=== PATIENT | female | born 1945 | race Caucasian/White ===

== ENCOUNTER 2016-09-16 04:33 | Inpatient (IN) | payer MEDICARE, OTHER, MEDICAID ==
[~2016-09-16] VITALS: Ht 165.1 cm; Wt 80.1 kg
--- NOTE | ~2016-09-16 | WND ---
ADMIT: 09/16/2016 RM/LOC: 403 [facility] MR#: [id number] [address] [address] MARI MAYORGA [address] [place] [address] [facility] SEX: F AGE: 71 : 1945 DATE OF VISIT: 09/17/2016 TIME IN: 1555 hours. TIME OUT: 1620 hours. REASON FOR VISIT: Evaluation and treatment of bilateral lower extremity ulcerations. This is a request for wound care from Dr. Saucedo. HISTORY OF PRESENT ILLNESS: This is the first time Wound Care has seen this 71-year-old female. She is admitted to [facility] on 09/16/2016, with shortness of breath. She has a history of chronic heart failure with preserved ejection fraction, hyponatremia, hypokalemia and anxiety. She was not sleeping well for several nights, she felt palpitations, was anxious and feeling short of breath. She has been following her weights at home and reported they were stable. She was seen in Dr. Saucedo's office a week ago. She was changed from Lasix to torsemide to help with diuresis. She took it 1 day, but felt did not help, so she stopped it. She also stopped her spironolactone. She presented to the emergency room where she was evaluated. In the ER, it was noted that her sodium was 131, potassium 3.0, creatinine 1.9 which is up. Therefore, she was admitted for further evaluation and cares. Wound Care was consulted today because of an open area on her anterior right lower extremity that has been bleeding. She also has multiple crusts noted on all her extremities. PAST MEDICAL HISTORY: Obtained from previous records. Atrial fibrillation, on chronic anticoagulation therapy with Coumadin. Anxiety, severe. Chronic pulmonary hypertension. Pleural effusion. Fibromyalgia. Chronic hyponatremia in the past. Major depression. Essential hypertension. Heart murmur, status post pacer. Hypokalemia, likely diuretic induced. PAST SURGICAL HISTORY: Right knee surgery, Achilles tendon rupture, rotator cuff, carpal tunnel, appendectomy, thoracentesis, pacemaker. ALLERGIES: To penicillin, cephalosporins, carbapenems. CURRENT MEDICATIONS: Per the MAR. See the MAR for further details. 1. Abilify. 2. Aldactone. 3. Coumadin. 4. Effexor. 5. Lopressor. 6. Micro-K. 7. Zestril. 8. Lasix. 9. Normal saline p.r.n. 10.Ativan. 11.Hurricaine. 12.Viscous lidocaine. 13.Maalox. ADMIT: 09/16/2016 RM/LOC: 403 [facility] MR#: [id number] [address] [place] [phone] MARI MAYORGA [address] [place] [address] W[facility] Care Clinic SEX: F AGE: 71 : 1945 14.Surfak. 15.Tylenol. 16.Flonase. 17.Tylenol suppository. 18.Nitrostat. FAMILY HISTORY: Father of kidney failure in his 50s. Mother had a stroke at 81. She has a brother and sister. Chart also indicates family history of cancer and stroke. SOCIAL HISTORY: She lives in [place]. She has her Associate's Degree. She is retired. She is single. She smoked less than a half a pack a day for year, but quit 43 years ago. She has 2 to 3 drinks whiskey every 3 to 4 days. REVIEW OF SYSTEMS: She is examined in her hospital room where she is awake, alert, and oriented x3. She denies any recent fever or chills. No nausea or vomiting. Has an occasional cough. At times, she says her chest hurts, but she thinks it is more related to her "heart rate." She states she has had pain in her legs that sometimes she describes it as shooting and it is in the posterior side of her right calf. She said to the anterior right leg, she has noticed an area that tends to bleed on and off for the last 2 to 3 weeks. She has also had some shortness of breath prior to admission. PHYSICAL EXAMINATION: VITAL SIGNS: Temperature 97.9, heart rate 71, respirations 15, blood pressure 115/55, O2 sats on room air is 95%. Body wide skin exam was done. She has varicosities noted, not only on her back, but also on her bilateral lower extremities. On her upper arm, she has numerous scattered small crusts and numerous bruises. None are open, none with any surrounding erythema or induration or drainage noted. To the right lower extremity, foot circumference is 22 cm, ankle is 25.5 cm and calf 20 cm, malleolus is 31 cm. Posterior tibialis and dorsalis pedis is 1+. She has brisk capillary refill. Her toes are cool to touch. She has multiple fine varicosities noted. On the anterior surface of her leg, she has a small opening that measures 0.7 cm x 0.4 cm with a depth of 0.2 cm with pink wound base. On the anterior area of her bates, is a full-thickness skin tear in the shape of the triangle that measures 1.1 cm x 0.3 cm with a depth of 0.2 cm. It is constantly oozing fresh blood. On the distal gaiter area, is a small crust that measures 0.7 cm x 0.7 cm with edges attached. On the medial malleolar area, is an area that measures 4 cm x 1.4 cm with multiple thin crusts noted. On posterior calf, is a small crust that is 1 x 0.3 cm in a C shape. This is dry and intact, appears to be a healed skin tear. On the left lower extremity, foot circumference is 22.5 cm, ankle is 20.5 cm and calf 20 cm, malleolus is 28 cm. Posterior tibialis and dorsalis pedis is 1+. Her toes with brisk capillary refill, slightly cool to touch. On the posterior calf, is a small crust that measures 0.3 cm x 0.2 cm. Anterior and more medially, is a crust that measures 0.4 cm x 0.3 cm; anterior laterally ADMIT: 09/16/2016 RM/LOC: 403 [facility] MR#: [id number] [address] [address] MARI MAYORGA [address] [place] [address] Wound Care Clinic SEX: F AGE: 71 : 1945 crust 0.4 cm x 0.6 cm; lateral medial crust 0.6 x 1.3 cm; and the medial malleolar area is 3 x 0.5 scattered small red crust. ASSESSMENT: 1. Scattered crusts intact on all extremities. 2. Right lower extremity anterior bates full-thickness categories skin tear with bleeding. TREATMENT PLAN: We will continue with Aloe Levan to all her extremities daily to help with moisturization. To the anterior bates area where the bleeding was occurring, pressure was applied, but did not stop the oozing. Therefore, Surgicel Hemostat Absorbable was obtained from the emergency room and placed over the bleeding skin tear. Pressure was held in place for 15 to 20 minutes. The bleeding appeared to slow. Vaseline gauze was placed over the crust on the right anterior bates area covered with an ABD and Kerlix wrap. Orders written to change the right lower extremity dressing daily. The Surgicel can be left in place until it comes off on its own. Also, notified the staff that if they need more of the Surgicel, to please contact the ER. Also, if this continues to ooze, may need to be cauterized. Thank you for this referral, and Wound will follow while she is inpatient. Jess Zapata, WAN/ hemanth JOB #: [id number] CC: Luigi Saucedo, Attending Physician Luigi Saucedo, Family Physician
[~2016-09-16 04:33] MED LIST: ALDACTONE DPS25 MG PO; ATIVAN-DPS1 MG PO; CLARITIN DPS10 MG PO; COUMADIN7.5 MG PO; COZAAR DPS25 MG PO; KLOR-CON M2020 ME1 PO; LASIX DPS80 MG PO; LOPRESSOR DPS50 MG PO; PAXIL10 MG PO
--- NOTE | 2016-09-18 11:56 | CO ---
ADMIT: 09/16/2016 RM/LOC: 403 [facility] MR#: [id number] [address] [address] TI[place] MARI Ivone [address] [place] [address] Consultation SEX: F AGE: 71 : 1945 DATE OF CONSULTATION: 09/17/2016 ATTENDING PHYSICIAN: Luigi Saucedo CONSULTING PHYSICIAN: Shawn Quiroz MD REASON FOR CONSULTATION: Persistent hypokalemia. HISTORY OF PRESENT ILLNESS: The patient is a 71-year-old female, who has had several hospital admissions over the last one month, 3 to be precise. She has a history of heart failure along with atrial fibrillation. She has required diuretics for her volume management. She notes that she has had cardiac issues for about the last 40 years. She is unclear as to the duration of her hypokalemia, but notes that it has been pronounced over the last 4 years or so. She denies any family history of similar electrolyte abnormalities. This time around, she was admitted with worsening shortness of breath. She has been keeping track of her weight at home and notes that her weight had gone up from 174 to 180 pounds prior to admission. She had been having some orthopnea as well. She had noticed worsening lower extremity edema too. Preceding this hospitalization, she had an attempted change in her diuretics from furosemide to torsemide that she reports did not work well for her. She was also having some palpitations prior to admission and then she had stopped her Aldactone. She has been requiring potassium supplements at home almost up to 90 mEq a day in divided doses. She has been attempting potassium rich foods such as bananas and tomatoes. At the time of this encounter, she feels better. Her breathing is better. She denies any urinary complaints. She has no ongoing GI losses to explain her hypokalemia. She has had a wound on her right bates for which Wound Care has been asked to evaluate her. She claims compliance with dietary sodium restriction otherwise. REVIEW OF SYSTEMS: A complete review of systems is negative in detail except as mentioned in history of present illness. PAST MEDICAL HISTORY: 1. Atrial fibrillation. 2. Right-sided pleural effusion. 3. Anxiety. 4. AV node ablation. 5. Hypokalemia. 6. Cataracts. 7. Osteoarthritis. 8. Pulmonary hypertension. ALLERGIES: PENICILLINS, CEPHALOSPORINS, AND CARBAPENEMS. MEDICATIONS: Reviewed in the chart. ADMIT: 09/16/2016 RM/LOC: 403 [facility] MR#: [id number] [address] [address] MARI MAYORGA [address] [place] [address] Consultation SEX: F AGE: 71 : 1945 SOCIAL HISTORY: Lives alone. Lifelong nonsmoker. Drinks alcohol occasionally. No recreational drug use. FAMILY HISTORY: No family history of hypokalemia or similar electrolyte abnormalities. Father of renal failure and uremia in 1963. MEDICATIONS: Reviewed in the chart. PHYSICAL EXAMINATION: VITAL SIGNS: Temperature 97.2 Fahrenheit, pulse 71, blood pressure 98/53, and saturating 95% on room air. GENERAL: She is comfortable. HEENT: Head is nontraumatic and normocephalic. No conjunctival pallor. Moist mucosa. CHEST: Clear to auscultation CVS: Irregular S1, S2 heard. No rubs, murmurs, or gallops. ABDOMEN: Soft and nontender. EXTREMITIES: She does have lower extremity edema, more pronounced on the right side. SKIN: She has a wound on her right bates. It is bandaged currently. NEUROLOGIC: Alert, awake, and x3, is able to move all her extremities. MUSCULOSKELETAL: Major joints within normal limits. Range of motion within normal limits. LABORATORY DATA: Reviewed. Her BMP this morning with a sodium of 133, potassium 3.0, CO2 is 34, creatinine 1.2, calcium 8.8, magnesium 2.4. Her potassium was normal in July 2016. This was presumably on potassium supplements. Her urinalysis showed some hyaline casts. Her N terminal proBNP was 1975. ASSESSMENT/PLAN: Hypokalemia - likely diuretic induced. The urine potassium has been ordered but this will be confounded by ongoing diuretic use as well as exogenous potassium supplements. She does not have any gastrointestinal ADMIT: 09/16/2016 RM/LOC: 403 [facility] MR#: [id number] [address] [address] MARI MAYORGA [address] [place] [address] Consultation SEX: F AGE: 71 : 1945 losses to explain this hypokalemia. Her serum magnesium level is okay as well. Based on her serum bicarbonate, it is unlikely that she is having a metabolic acidosis too. Considering the severity of her hypokalemia, I would replete this with intravenous potassium chloride first. I will also try to use potassium-sparing antihypertensives, that is lisinopril and Aldactone to see if we can conserve any potassium to see if we can decrease any urinary potassium losses. Of course, we will have to be cautious with her blood pressure being on the lower side. Thank you for this interesting consultation and allowing me the opportunity to participate in this patient's care. Please do not hesitate to contact me with any questions. Shawn Quiroz MD/ hemanth JOB #: [id number] CC: Luigi Saucedo, Attending Physician Luigi Saucedo, Family Physician
[2016-09-18] MEDS ORDERED: LASIX DPS80 MG PO (17:38)
[2016-09-18] MEDS ORDERED: MICRO-K DPS10 MEQ PO (17:38)
[2016-09-18] MEDS ORDERED: COUMADIN7.5 MG PO ×2 (17:38→17:39)
[2016-09-18] MEDS ORDERED: ALDACTONE50 MG PO (17:38)
[2016-09-18] MEDS ORDERED: ABILIFY5 MG PO (17:39)
[2016-09-18] MEDS ORDERED: ATIVAN-DPS1 MG PO (17:39)
[2016-09-18] MEDS ORDERED: EFFEXOR XR37.5 M1 PO (17:40)
[2016-09-18] MEDS ORDERED: FLONASE 0.05% D16 GM NS (17:40)
[2016-09-18] MEDS ORDERED: ZESTRIL DPS2.5 MG PO (17:40)
[2016-09-18] MEDS ORDERED: LOPRESSOR DPS50 MG PO (17:40)
[2016-09-18] MEDS ORDERED: TYLENOL EXTRA500 M1 PO (17:40)
--- NOTE | 2016-09-18 22:11 | HP ---
ADMIT: 09/16/2016 RM/LOC: 403 [facility] MR#: [id number] [address] [address] MARI MAYORGA [address] [place] [address] History and Physical SEX: F AGE: 71 : 1945 DATE OF SERVICE: CHIEF COMPLAINT: Shortness of breath. HISTORY OF PRESENT ILLNESS: This is a 71-year-old female. She has past history of chronic heart failure with preserved ejection fraction, hyponatremia, hypokalemia, and anxiety. She presented with not sleeping for four nights. She has some palpitations at night, feeling anxious, and feeling short of breath. She says, she is more short of breath when she lies down. She falls asleep and then wake up with a feeling of panic with her heart racing, so she cannot "go on like this." She has been following her weights at home and these have been pretty stable for her she reports, I saw her about a week ago in my office. I changed her from Lasix to torsemide to hopefully help with her diuresis. She reports that she just took it one day and did not think it helped, so she stopped it. She also stopped her spironolactone because she thought it was making her have these palpitation episodes, so she came to the emergency room. She is very anxious because she reports she lost her Medicaid. She says she did get some forms in time that she was supposed to. In the emergency room, nothing acute. Sodium was 131, potassium 3.0, creatinine 1.9 which is up. PAST MEDICAL HISTORY: All reviewed per last H and P and unchanged. SOCIAL HISTORY: All reviewed per last H and P and unchanged. FAMILY HISTORY: All reviewed per last H and P and unchanged. MEDICATION: Per the admission medication list. REVIEW OF SYSTEMS: Other complete review of systems obtained and negative except as above. PHYSICAL EXAMINATION: VITAL SIGNS: Blood pressure 120/65, heart rate 70, respiratory rate 18, temperature 97.8. GENERAL: This is a moderately anxious 71-year-old female. She is in some distress because of her anxiety. HEENT: Pupils are equal, round, and reactive to light and accommodation. Extraocular muscles are intact. Her throat is clear. NECK: Supple. HEART: regular rate and rhythm. She has a pacer in the upper chest. She does have a systolic and diastolic murmur. LUNGS: Diminished in the right lower lobe and severely diminished throughout. ABDOMEN: Protuberant, but soft without any overt tenderness. EXTREMITIES: Lower extremities, she has some venous stasis and recent dermatitis irritation on the right lower extremity. She has 2 to 3+ pitting edema. She has some wounds on her legs. She has poor balance. She can move all extremities equally bilaterally. LABORATORY AND X-RAY DATA: As above and INR is 1.84, proBNP is 1975, troponin ADMIT: 09/16/2016 RM/LOC: 403 [facility] MR#: [id number] [address] [place] [phone] MARI MAYORGA [address] [place] [address] History and Physical SEX: F AGE: 71 : 1945 was mildly elevated at 0.048, CK is 106, potassium 3.0, sodium 131, creatinine 1.9, magnesium of 1.9. Hemoglobin 11.8. EKG is paced. ASSESSMENT: 1. Shortness of breath. 2. Anxiety. 3. Chronic heart failure with preserved ejection fraction. 4. Atrial fibrillation. 5. Chronic anticoagulation. 6. Chronic obstructive pulmonary disease. 7. History of an arrhythmia. PLAN: She will be admitted her to the hospital. Rule out for cardiac ischemia. Worked up for hyponatremia and give her extra potassium. Continue diuresis to try to see if we can help her symptoms. I think some of her symptoms are anxiety based. I will have social work help with these issues. I will have Cardiology consult as well. Luigi Saucedo MD/ hemanth JOB #: [id number] CC: Luigi Saucedo, Attending Physician Luigi Saucedo, Family Physician
--- NOTE | 2016-09-19 21:21 | ER ---
ADMIT: 09/16/2016 RM/LOC: 403 [facility] MR#: [id number] [address] [address] [place] MARI Ivone [address] [place] [address] Emergency Room Report SEX: F AGE: 71 : 1945 DATE: 09/16/2016 HISTORY OF PRESENT ILLNESS: The patient is a 71-year-old female with chronic diastolic heart failure, chronic hyponatremia, hypokalemia, moderate tricuspid regurgitation, pulmonary hypertension, obstructive sleep apnea, intolerant of CPAP, states for the past four nights she has had orthopnea PND, called the squad tonight because of the increasing dyspnea. Denies any chest pain, fevers, chills, or cough. PAST MEDICAL HISTORY: ALLERGIES: CEPHALOSPORINS, CARBAPENEMS, PENICILLIN. MEDICATIONS: Please see nurse's MAR. ILLNESSES: Chronic atrial fib, status post dual-chamber pacemaker and ICD; moderate tricuspid regurgitation; mild mitral regurgitation; hypertension; hyponatremia; hypokalemia; chronically anticoagulated anemia of chronic disease; anxiety; depression; DJD; and pulmonary hypertension. OPERATIONS: Appendectomy, normal cardiac cath 2006, ICD dual-chamber pacemaker, AV mily ablation, lung decortication, cataract extraction with retinal detachment. SOCIAL HISTORY: Never smoker. Single. Lives alone. No illicit drugs or alcohol. FAMILY HISTORY: Negative per chart review. REVIEW OF SYSTEMS: A 12-point review of systems negative for all other systems, illnesses, or operations except as outlined above. PHYSICAL EXAMINATION: VITAL SIGNS: Temperature 97.8, pulse 70, respirations 18, BP 120/65, SaO2 of 98% on room air. GENERAL: Nontoxic, non-diaphoretic without jaundice or icterus. HEENT: Normocephalic. No evidence of epistaxis, rhinorrhea, or otorrhea. NECK: Supple without lymphadenopathy or thyromegaly. CHEST: Breath sounds equal. Slightly diminished right lung base. HEART: Regular rate and rhythm with grade 3/6 diastolic murmur noted at left sternal border. 3+ pedal ankle edema. ABDOMEN: Obese, nontender, nondistended without mass or megaly. Bowel sounds hypoactive. EXTREMITIES: No evidence of Homans sign, or synovitis. Venous stasis dermatitis/cellulitis noted. NEURO: EOMI. PERRLA. No evidence of drift, dysarthria, or ataxia. GAIT: Not assessed. LABORATORY AND DIAGNOSTIC DATA: Chest x-ray shows cardiomegaly without CHF. EKG shows atrial fib, ventricular paced; nonspecific interventricular ADMIT: 09/16/2016 RM/LOC: 403 [facility] MR#: [id number] [address] [place] [phone] [place] [address] Emergency Room Report SEX: F AGE: 71 : 1945 conduction delay, unchanged from previous. Hemoglobin 11.8, sodium 131, potassium 3.0, creatinine 1.9, lactic 1.9. BNP 1975. INR 1.84. CK 106, MB 1.2. Troponin 0.048. The patient was given Lasix 40 mg IV push. Discussed case with Dr. Saucedo, who agreed to admit and requests floor to call for orders. DIAGNOSES: 1. Acute kidney injury associated with chronic kidney disease. 2. Hyponatremia and hypokalemia. 3. Congestive heart failure. 4. Pulmonary hypertension. RECOMMENDATION: Admit inpatient telemetry for Dr. Saucedo. ADMISSION/DISCHARGE CONDITION: Serious. CODE STATUS: The patient is a full code. Vick Gary MD/ hemanth JOB #: [id number] CC: Luigi Saucedo MD, Attending Physician Luigi Saucedo MD, Family Physician Luigi Saucedo MD
--- NOTE | 2016-09-25 07:12 | DS ---
ADMIT: 09/16/2016 RM/LOC: 403 [facility] MR#: [id number] 2620 [facility] [address] [place] [address] [place] MARI Wiseman [address] [place] [address] General Discharge Summary SEX: F AGE: 71 : 1945 ADMISSION DATE: 09/16/2016 DISCHARGE DATE: 09/18/2016 FINAL DIAGNOSES: 1. Shortness of breath. 2. Anxiety. 3. Acute on chronic heart failure with preserved ejection fraction. 4. Atrial fibrillation. 5. History of ventricular tachycardia. 6. Hyponatremia, anticoagulation. 7. Elevated troponin. 8. Acute kidney injury. See admission H and P for reason for admission. HISTORY OF PRESENT ILLNESS: Briefly, a 71-year-old female with chronic heart failure, presented with increased shortness of breath and some social issues. She also had been on some oral metolazone and potassium and sodium were pretty low. HOSPITAL COURSE: The patient was admitted. Continued on IV Lasix. We got a kidney ultrasound and some urine studies and follow closely. I had Nephrology consult for persistent hypokalemia. He put her on 2.5 mg of lisinopril. She was supposed to get set up for a CARL and ultimately decided that I need to do that. She has wound care to her wounds on her legs. By the , she was feeling pretty well, was wanting to go home. INR was 2.69. Sodium 138, potassium 3.9, BUN 31, creatinine 1.2, so she was set up to go home. Therefore, this was done. DISCHARGE MEDICATIONS: 1. Abilify 5 mg at bedtime. 2. Aldactone 12.5 mg q.p.m. ADMIT: 09/16/2016 RM/LOC: 403 [facility] MR#: [id number] [address] [address] MARI MAYORGA Ivone [address] [place] [id number] General Discharge Summary SEX: F AGE: 71 : 1945 3. Coumadin 7.5 mg on Thursday, Thursday, Thursday, , Thursday, and 11.25 mg Thursday and Thursday. 4. Effexor 37.5 mg daily. 5. Lopressor 50 mg b.i.d. 6. Potassium 30 mEq t.i.d. 7. Lisinopril 2.5 mg daily. 8. Ativan 1 mg q.8 hours p.r.n. 9. Lasix 160 mg p.o. b.i.d. 10.Flonase each nostril b.i.d. p.r.n. PLAN: Resume home health care. Continue with daily weights. Low-salt diet. BMP and a pro-time next Thursday, and follow up with me in 1 to 2 weeks. Luigi Saucedo MD/ hemanth JOB #: [id number] CC: Luigi Saucedo MD, Attending Physician Luigi Saucedo MD, Family Physician
--- NOTE | 2016-10-07 13:54 | CO ---
ADMIT: 09/16/2016 RM/LOC: 403 [facility] MR#: [id number] [address] [address] MARI MAYORGA [address] [place] [id number] Consultation SEX: F AGE: 71 : 1945 DATE OF CONSULTATION: 09/16/2016 ATTENDING PHYSICIAN: Luigi Saucedo CONSULTING PHYSICIAN: Ezekiel Brock MD REASON FOR CONSULT: Shortness of breath. HISTORY OF PRESENT ILLNESS: Mari is a 71-year-old female, with a past history of chronic heart failure with preserved ejection fraction, hyponatremia, hypokalemia, and anxiety. She presented to the ER with main symptoms of shortness of breath and heart palpitations. Onset of symptoms is 4 days ago. She reports shortness of breath and heart palpitations as soon as she falls asleep. She has to wake up and grasp for air. She denies any chest pain, dizziness, syncope. PAST MEDICAL HISTORY: History of permanent atrial fibrillation, normal coronary arteries by catheterization in 2005, right pleural effusion status post decortication at the [facility] in April, AV node ablation in 2009 with pacemaker placement, anemia, anxiety, depression, pulmonary hypertension. ALLERGIES: PENICILLIN, CEPHALOSPORIN, CARBAPENEMS. MEDICATIONS: 1. Potassium chloride 30 mEq three times daily. 2. Lasix 160 mg twice daily. 3. Spironolactone 25 mg every day. 4. Warfarin 7.5 mg. 5. Loratadine 10 mg every morning. 6. Aripiprazole 5 mg at bedtime. 7. Ativan 1 mg every 8 hours p.r.n. 8. Flonase 50 mcg daily p.r.n. 9. Tylenol 325 mg two tabs every 4 hours as needed. 10.Paroxetine 10 mg every morning. 11.Metoprolol tartrate 50 mg twice daily. SOCIAL HISTORY: The patient denies smoking and drug abuse. She drinks 2 alcoholic drinks occasionally. She eats a regular diet. FAMILY HISTORY: She did have a history of stroke in her mother. Positive family history for heart disease. REVIEW OF SYSTEMS: GENERAL: Denies fatigue, fever, chills, sweats, rash, or weight loss. EYES: Denies double vision, blurred vision, cataracts, or glaucoma. ENT: Denies hearing loss or problems with nose, mouth or throat. PULMONARY: Denies cough, sputum production, asthma, emphysema or bronchitis. Denies snoring loudly, wakefulness at night, or fatigue upon awakening. GASTROINTESTINAL: Denies heartburn or difficulty swallowing. No change in ADMIT: 09/16/2016 RM/LOC: 403 [facility] MR#: [id number] [address] [address] MARI MAYORGA [address] [place] [address] Consultation SEX: F AGE: 71 : 1945 bowel habits. Denies dark or bloody stools. No history of ulcers, hiatal hernia, or gallbladder or liver disease. GENITOURINARY: Denies dysuria, hematuria, nocturia, urinary tract infection, or kidney stones. Denies history of renal insufficiency or failure. MUSCULOSKELETAL: Denies history of arthritis or gout. Denies muscle or joint pains. ENDOCRINE: Denies history of thyroid dysfunction or diabetes. HEMATOLOGIC: Denies history of anemia, easy bruising, or cancer. NEUROLOGIC: Denies chronic headaches, dizziness, syncope, stroke, seizures or numbness or tingling. PSYCHIATRIC: Denies history of mental illness or feelings of depression. PHYSICAL EXAMINATION: VITAL SIGNS: Blood pressure 114/48, pulse 72, respirations 16, temperature 98.5, oxygenation 97% on room air. SKIN: [place], warm and dry. EYES: Sclerae clear. No xanthelasmas. ENT: Oral mucosa is pink and moist. No jugular venous distention or carotid bruits. CHEST: Respirations are even and unlabored. Lungs are clear to auscultation. HEART: 3/6 holosystolic murmur. ABDOMEN: Soft and nontender. MUSCULOSKELETAL: Gait is normal. EXTREMITIES: Positive for varicosities. Peripheral pulses palpable. No clubbing, cyanosis or edema. PSYCHIATRIC: Alert and oriented. Mood and affect are appropriate. LABORATORY AND X-RAY DATA: Sodium 131, potassium 3.0, chloride 85, carbon dioxide 34, BUN 144, creatinine 1.9, glucose 102. CK 106, MB 1.2, troponin 0.048, proBNP 1975, CRP 0.96. Last echo done on 09/01/2016, showed EF 55-60%. Chest x-ray on 09/16/2016, showed small right pleural effusion with right base atelectasis or consolidation. Ultrasound of kidneys on 09/16/2016, showed normal ultrasound of kidney and retroperitoneum. ADMIT: 09/16/2016 RM/LOC: 403 [facility] MR#: [id number] [address] [address] MARI MAYORGA [address] [place] [address] Consultation SEX: F AGE: 71 : 1945 ASSESSMENT AND PLAN: Per Dr. Brock: 1. Palpitations. Device was checked and showed no arrhythmias. Her symptoms are possibly due to her anxiety. 2. Heart failure. Preserved ejection fraction. We will continue IV Lasix. Mild fluid build-up. 3. Atrial fibrillation. Permanent status post AV node ablation. 4. Acute kidney injury. 5. Murmur. An echo was done 2 weeks ago and it did not show significant valvular disease. May consider CARL to evaluate mitral valve closer. 6. Status post pacer. Thank you for the consult. ANTHONY Mcdonald Student / Ezekiel Brock MD / hemanth JOB #: [id number] CC: Luigi Saucedo, Attending Physician Luigi Saucedo, Family Physician
[2016-10-30] MEDS ORDERED: KEFLEX-DPS500 MG PO (09:57)
[2017-03-17] MEDS ORDERED: CLARITIN DPS10 MG PO (09:01)
[2017-03-17] MEDS ORDERED: ORGAN-I NR200 MG PO (09:02)
[2017-03-17] MEDS ORDERED: ZAROXOLYN5 MG PO (09:03)
[2017-03-17] MEDS ORDERED: MAG-OX400 MG PO (09:05)
== END 2016-09-18 13:45 | disposition home health service (06) | DRG 291 ==
LOC: ER 04:33 → 4PCU 06:25
PROVIDERS: ADMIT Internal Medicine
DX: I13.0 Hypertensive heart and chronic kidney disease with heart failure and stage 1 through stage 4 chronic kidney disease, or unspecified chronic kidney disease (principal); I50.33 Acute on chronic diastolic (congestive) heart failure; N17.9 Acute kidney failure, unspecified; I27.2 Other secondary pulmonary hypertension; E87.1 Hypo-osmolality and hyponatremia; I48.2 Chronic atrial fibrillation; R00.2 Palpitations; E87.6 Hypokalemia; G47.33 Obstructive sleep apnea (adult) (pediatric); I08.1 Rheumatic disorders of both mitral and tricuspid valves; S81.811A Laceration without foreign body, right lower leg, initial encounter; X58.XXXA Exposure to other specified factors, initial encounter; D63.8 Anemia in other chronic diseases classified elsewhere; F41.9 Anxiety disorder, unspecified; F32.9 Major depressive disorder, single episode, unspecified; M19.90 Unspecified osteoarthritis, unspecified site; I51.7 Cardiomegaly; N18.9 Chronic kidney disease, unspecified; I87.8 Other specified disorders of veins; R01.1 Cardiac murmur, unspecified; Z95.810 Presence of automatic (implantable) cardiac defibrillator; Z79.01 Long term (current) use of anticoagulants

== ENCOUNTER 2016-10-03 14:37 | Emergency (ER) | payer MEDICARE, OTHER, MEDICAID ==
[~2016-10-03 14:37] MED LIST changes: +ABILIFY5 MG PO; +ALDACTONE50 MG PO; +EFFEXOR XR37.5 M1 PO; +FLONASE 0.05% D16 GM NS; +MICRO-K DPS10 MEQ PO; +TYLENOL EXTRA500 M1 PO; +ZESTRIL DPS2.5 MG PO
--- NOTE | 2016-10-05 11:45 | ER ---
ADMIT: 10/03/2016 RM/LOC: ER [facility] MR#: [id number] [address] [address] MARI MAYORGA [address] [place] [address] Emergency Room Report SEX: F AGE: 71 : 1945 DATE: ADDENDUM: This is a 71-year-old white female coming in with varicosity on her lower leg that have bled, we had stopped this. She does have significant varicose veins, chronic swelling, skin is a little bit dry she said. So essentially we had a cream that we applied to it and then we Marclelus wrapped her legs since that is a little easier for her. We are going to discharge her home. She does have Home Health coming in and she should follow up with her doctor. She is consistently low like 100/60 as far as her blood pressure and she is not having any problems tolerating that, that is her normal blood pressure. She should leave those Marcellus wraps on until her Home Health person sees in next couple of days. CONDITION ON DISCHARGE: Fair. Madhav Tellez MD/ hemanth JOB #: [id number] CC: Madhav Tellez MD, Attending Physician
[2016-10-30] MEDS ORDERED: KEFLEX-DPS500 MG PO (09:57)
[2017-03-17] MEDS ORDERED: CLARITIN DPS10 MG PO (09:01)
[2017-03-17] MEDS ORDERED: ORGAN-I NR200 MG PO (09:02)
[2017-03-17] MEDS ORDERED: ZAROXOLYN5 MG PO (09:03)
[2017-03-17] MEDS ORDERED: MAG-OX400 MG PO (09:05)
== END 2016-10-03 16:05 | disposition home or self-care (01) ==
LOC: ER 14:37
DX: I83.893 Varicose veins of bilateral lower extremities with other complications (principal); Z88.0 Allergy status to penicillin; Z79.899 Other long term (current) drug therapy

== ENCOUNTER 2016-10-24 12:22 | Inpatient (IN) | payer MEDICARE, OTHER, MEDICAID ==
[~2016-10-24] VITALS: Ht 165.1 cm; Wt 84.6 kg
[~2016-10-24 12:22] MED LIST changes: -KEFLEX-DPS500 MG PO; -MAG-OX400 MG PO; -ORGAN-I NR200 MG PO; -ZAROXOLYN5 MG PO
[2016-10-30] MEDS ORDERED: KEFLEX-DPS500 MG PO (09:57)
--- NOTE | 2016-10-31 16:27 | HP ---
ADMIT: 10/24/2016 RM/LOC: 415 [facility] MR#: [id number] [address] [address] MARI MAYORGA [address] [place] [address] History and Physical SEX: F AGE: 71 : 1945 DATE OF SERVICE: CHIEF COMPLAINT: Right lower extremity pain and swelling. HISTORY OF PRESENT ILLNESS: This is a 71-year-old female. She has a past medical history of chronic diastolic heart failure, atrial fibrillation, COPD, and recurrent lower extremity edema with cellulitis recently. She has been at home with some home health care but her lower extremity started to swell more. She had labs done a couple of days ago, showing an elevated creatinine up to 2.6, which is above her baseline of about 1.6. I brought her into the office today for evaluation. She reveals she has had some right lower extremity swelling and pain. This has been worse over the previous couple of days. It should be noted that her INR 3 days ago was 2.19. Her leg is grossly swollen with some petechial-like rashes. She has some gross redness over the foot and bates. It is exquisitely tender to palpation. It is warm, good capillary refill bilaterally. Her pain is so severe. She is having trouble getting around. She does feel a little short of breath but she blames this on me because I held her Lasix couple of days ago due to her elevated creatinine. She denies any fevers or chills but reports she has lost her gumption and/or motivation. PAST MEDICAL HISTORY: Includes chronic diastolic congestive heart failure, right pleural effusion, status post decortication, atrial fibrillation, chronic hyponatremia, anticoagulation, anxiety, history of alcohol abuse, COPD, fibromyalgia, major depression. PAST SURGICAL HISTORY: Also include right knee surgery, Achilles tendon rupture, rotator cuff surgery, carpal tunnel, and appendectomy. MEDICATIONS: Per the admission medication list. SOCIAL HISTORY: She does drink alcohol at times. She lives by herself with some help from assisted living right now. FAMILY HISTORY: Her father of kidney failure in his 50s. Mother had a stroke at 81. She is single former smoker, has a sister and a brother. REVIEW OF SYSTEMS: Other complete review of systems obtained and negative except as above. PHYSICAL EXAMINATION: VITAL SIGNS: Temperature 97.8, pulse 70, respirations 18, blood pressure 98/61, ox saturation 94% on room air. GENERAL: This is a 71-year-old, white female. She is no apparent distress. She is alert and oriented. She is little anxious, appears fatigued. HEENT: Head is normocephalic and atraumatic. HEENT: Pupils equal, round, and reactive to light and accommodation. Her extraocular muscles are intact. Trachea is midline. Throat is clear. NECK: Again, supple. HEART: Regular rate and rhythm. She has 3/6 systolic murmur, best on the ADMIT: 10/24/2016 RM/LOC: 415 [facility] MR#: [id number] [address] [place] [phone] MARI MAYORGA [address] [address] History and Physical SEX: F AGE: 71 : 1945 left sternal border. LUNGS: Diminished, but clear bilaterally. She has some diminished sounds in the bases bilaterally. ABDOMEN: Diffusely protuberant and mildly tympanic. EXTREMITIES: Right lower extremity is grossly edematous with increased redness throughout, worse in her foot and lessens as it comes up to her thigh. She has some petechial-like rash on her right inner thigh, just close to her knee. She has some draining ulcerative area on the right. Her left lower extremity have 1+ edema and appears pretty normal. She has gross weakness. She can move all extremities. She has 4/5 strength bilaterally in all extremities. LABORATORY AND X-RAY DATA: She has had a venous Doppler done today, which was negative for DVT; however, did see right groin lymphadenopathy. Cultures done and pending. CRP is 10.5. Creatinine of 2.2. INR today is 2.76. Lactic acid is 1.0. CBC; white count 9.5, hemoglobin 10.2, and platelets of 189. Sedimentation rate is 49. Procalcitonin 0.87. Abdominal pelvis CT scan shows ascites, edema of the tissues, and superficial lymph node in the right groin of 2.5 cm and then scattered nonspecific lymph nodes as well. ASSESSMENT AND PLAN: 1. Right lower extremity swelling and pain. 2. Right lower extremity cellulitis. 3. Right groin lymphadenopathy. 4. Ascites. 5. Chronic diastolic congestive heart failure. 6. Acute kidney injury. 7. Chronic anticoagulation and atrial fibrillation. 8. Anxiety/depression. PLAN: She has been admitted to the hospital, give her IV antibiotics. We will follow her renal function closely. Consult Surgery for excisional biopsy of the right groin lesion at this time. Right groin lymph node with lymphoma studies. We will hold her Coumadin in the meantime until that surgery can be done. Luigi Saucedo MD/ hemanth JOB #: [id number] CC: Luigi Saucedo, Attending Physician Luigi Saucedo, Family Physician
--- NOTE | 2016-11-04 12:58 | DS ---
ADMIT: 10/24/2016 RM/LOC: 625 [facility] MR#: [id number] [address] [address] TIERRA MARI J [address] [place] [address] General Discharge Summary SEX: F AGE: 71 : 1945 ADMISSION DATE: 10/24/2016 DISCHARGE DATE: 10/29/2016 REASON FOR ADMISSION: See dictated H and P, but briefly, this is a 71-year- old female presented with right lower extremity swelling and severe pain. Noted to have cellulitis. HOSPITAL COURSE: The patient was admitted to the hospital, placed on IV antibiotics, rule out for DVT prior with venous Doppler. Doppler ultimately showed some lymph node in her right groin and potentially need for biopsy taken, this may be malignant. She did improve with IV antibiotics. Her leg swelling was much less, pain was much less. She had some hypokalemia, which was replaced orally. On the , her INR was 1.33, creatinine 1.3 and potassium was 4.7. Plan to discharge her to home and follow up with me in 1 to 2 weeks. DISCHARGE MEDICATIONS: Include: 1. Abilify 5 mg at bedtime. 2. Claritin 10 mg daily. 3. Coumadin 7.5 mg Thursday, Thursday, Thursday, Thursday, , Thursday, and half a pill on Saturdays. 4. Effexor 37.5 mg daily. 5. Lasix 60 mg daily. 6. Lopressor 50 mg b.i.d. 7. Potassium 30 mEq t.i.d. 8. Spironolactone 50 mg daily. 9. Ativan 1 mg q.8 hours p.r.n. 10.Keflex 1000 mg b.i.d. for seven more days. 11.Low-salt diet. 12.2 L of fluid or less. This coming Thursday, BMP and PT/INR. Follow up with me in 1 week's time. Luigi Saucedo MD/ hemanth JOB #: [id number] CC: Luigi Saucedo MD, Attending Physician Luigi Saucedo MD, Family Physician
--- NOTE | 2016-12-02 13:25 | CO ---
ADMIT: 10/24/2016 RM/LOC: 415 [facility] MR#: [id number] [address] [address] TIERRA MARI Ivone [address] [place] [address] Consultation SEX: F AGE: 71 : 1945 DATE OF CONSULTATION: 10/25/2016 ATTENDING PHYSICIAN: Luigi Saucedo CONSULTING PHYSICIAN: Silver Rivera MD REASON FOR CONSULTATION: Request for biopsy of right inguinal lymph node. HISTORY OF PRESENT ILLNESS: This patient is a 71-year-old female, who was admitted basically for cellulitis and edema of right lower extremity, right leg. She has a significant past medical history of chronic diastolic heart failure, atrial fibrillation, on chronic anticoagulation, with recurrent lower extremity edema and cellulitis. This is what she was admitted for. She is currently on IV antibiotics of vancomycin and Rocephin. The swelling of the leg and pain seems to be getting better. Then, the workup, she had a duplex ultrasound that showed no evidence of blood clots, they saw some adenopathy. CT scan was done and it showed some prominent lymph nodes in the right groin, I do not see a lot of significant lymph nodes in left groin. PAST MEDICAL HISTORY: Significant for the above. History of a decortication with a significant right pleural effusion here while back, anxiety history in the past, alcohol abuse, COPD, fibromyalgia, and depression. She has had the decortication of the right lung it sounds like then down in [place], right knee surgery. She has had an Achilles tendon rupture, rotator cuff, carpal tunnel, appendectomy. CURRENT MEDICATIONS: Please see the list. She is routinely on Coumadin, that is on hold. SOCIAL HISTORY: She lives currently by herself. Denies significant tobacco at this time or alcohol although she does drink at times it sounds like. FAMILY HISTORY: Noncontributory. REVIEW OF SYSTEMS: Currently, her review of systems is as above in the HPI. Otherwise, negative. PHYSICAL EXAMINATION: GENERAL: She is alert. She is oriented. She is in no significant distress. HEENT: Her sclerae appear nonicteric. HEART: Regular rate and rhythm with murmur. LUNGS: Distant, but appear clear. ABDOMEN: Benign. No pain to palpation. No mass. No organomegaly. EXTREMITIES: She has some overall redness, cellulitis to the right leg, mostly lower below the knee, some up into the medial thigh. There is no real streaking erythema, it is more of a diffuse kind of cellulitis with some kind of petechial hemorrhages here there. She has evidence of some varicosities. Her edema, the one she tells me, is better. I have not seen this before. She does have palpable lymph nodes in the right groin, they are a little bit ADMIT: 10/24/2016 RM/LOC: 415 [facility] MR#: [id number] [address] [place] [phone] MARI MAYORGA [address] [place] [address] Consultation SEX: F AGE: 71 : 1945 tender to palpation. I do not feel any real significant lymph nodes in the left groin. I do not feel any supraclavicular, cervical, or axillary adenopathy. She denies any significant night sweats or things of that nature to me at this point. ASSESSMENT AND PLAN: At this time, in looking at this overall situation, I am fairly certain that this right groin adenopathy is secondary to the cellulitis and process going on in the right leg. I doubt that this would be a lymphoma presenting like this. My suggestion would be we can sure biopsy a lymph node, but should we get her cellulitis taken care of and treated and if lymphadenopathy persists after that and there is no real reason then for the adenopathy, then biopsy one of these groin lymph nodes. I will check with [facility] physicians and see what they think and go from there. I will check on her again tomorrow, currently nothing acute to do. Silver Rivera MD/ hemanth JOB #: [id number] CC: Luigi Saucedo, Attending Physician Luigi Saucedo, Family Physician
[2017-03-17] MEDS ORDERED: CLARITIN DPS10 MG PO (09:01)
[2017-03-17] MEDS ORDERED: ORGAN-I NR200 MG PO (09:02)
[2017-03-17] MEDS ORDERED: ZAROXOLYN5 MG PO (09:03)
[2017-03-17] MEDS ORDERED: MAG-OX400 MG PO (09:05)
== END 2016-10-29 10:00 | disposition home health service (06) | DRG 603 ==
LOC: 4PCU 12:22 → 6PED 10-28 14:45
PROVIDERS: ADMIT Internal Medicine
DX: L03.115 Cellulitis of right lower limb (principal); N17.9 Acute kidney failure, unspecified; I50.32 Chronic diastolic (congestive) heart failure; R18.8 Other ascites; I48.91 Unspecified atrial fibrillation; E87.1 Hypo-osmolality and hyponatremia; N18.3 Chronic kidney disease, stage 3 (moderate); E87.6 Hypokalemia; J44.9 Chronic obstructive pulmonary disease, unspecified; F41.9 Anxiety disorder, unspecified; M79.7 Fibromyalgia; F32.9 Major depressive disorder, single episode, unspecified; I89.0 Lymphedema, not elsewhere classified; Z79.01 Long term (current) use of anticoagulants; Z87.891 Personal history of nicotine dependence

== ENCOUNTER → 2016-10-24 | Outpatient (CLI) | payer MEDICARE, OTHER, MEDICAID ==
[~2016-10-24] MED LIST changes: +KEFLEX-DPS500 MG PO; +MAG-OX400 MG PO; +ORGAN-I NR200 MG PO; +ZAROXOLYN5 MG PO
== END | disposition home or self-care (01) ==
LOC: RAD.S 09:31
DX: M79.89 Other specified soft tissue disorders (principal); R59.9 Enlarged lymph nodes, unspecified